=== PATIENT | female | born 1990 | race African-American/Black ===

== ENCOUNTER 2018-01-18 10:54 | Emergency (ER) | payer OTHER ==
[~2018-01-18] VITALS: Ht 170.2 cm; Wt 113.0 kg
[2018-01-18 11:06] VITALS: BP 168/99; PULSE 85; RESP 16; TEMP 97.8; O2SAT 96
[2018-01-18 11:13] VITALS: TEMP 97.9
[2018-01-18] MEDS ORDERED: levETIRAcetam 500 MG TAB PO ONE (11:30)
[2018-01-18] MEDS ORDERED: SODIUM CHLORIDE 0.9% FLUSH 10 ML FLUSH IVF PRN (11:30)
[2018-01-18] MEDS ORDERED: LORazepam 1 MG TAB PO ONE (11:30)
--- NOTE | 2018-01-18 11:30 | PD ---
HPI Chief Complaint: Seizure Time Seen by Provider: 11:19 Travel History International Travel<30 days: No Contact w/Intl Traveler<30days: No Traveled to known affect area: No History of Present Illness HPI 27-year-old female presents to the emergency department via EMS for evaluation after she had a seizure just prior to arrival. Patient's significant other is at bedside and states that he witnessed the seizure. The patient was sleeping when she had a seizure. She had no head injury. The patient reports history of seizures. She states her first seizure was in September 2017 and she has had 4 seizures since. She states that she normally takes Keppra 500 mg daily, but ran out yesterday. She states her physician wanted her to wait until Sunday before her physician gave her a refill. Patient denies . Exacerbating factor is running out of medication. Alleviating factor is compliance with medication. Moderate severe. PFSH Past Medical History ?: Unknown Social History Alcohol Use: Yes (occasionally) Tobacco Use: Yes (half pack per day) Substance Use: Yes (marijuana) Allergies-Medications (Allergen,Severity, Reaction): Coded Allergies: amoxicillin (Verified Allergy, Unknown, 01/18/18) Review of Systems Except as stated in HPI: all other systems reviewed are Neg Physical Exam Narrative GENERAL: Well-nourished, well-developed female patient, afebrile. SKIN: Focused skin assessment warm/dry. HEAD: Normocephalic. Atraumatic. ENT: Mucosa pink and moist. No erythema or exudates. No uvular edema. No uvular , palatal, or tonsillar deviation. Airway patent. Nasal turbinates appear normal without nasal blood, purulent drainage or septal hematoma. Bilateral tympanic membranes are clear without erythema or perforation. EYES: No scleral icterus. No injection or drainage. NECK: Supple, trachea midline. No JVD or lymphadenopathy. CARDIOVASCULAR: Regular rate and rhythm without murmurs, gallops, or rubs. Bilateral radial and pedal pulses are 2+. RESPIRATORY: Breath sounds equal bilaterally. No accessory muscle use. Lungs sounds are clear to auscultation GASTROINTESTINAL: Abdomen soft, non-tender, nondistended. MUSCULOSKELETAL: No cyanosis, or edema. BACK: Nontender without obvious deformity. No CVA tenderness. Data Data Last Documented VS Vital Signs Date Time Temp Pulse Resp B/P (MAP) Pulse Ox O2 Delivery O2 Flow Rate FiO2 2/23/18 11:53 98 Room Air 01/18/18 11:46 01/18/18 11:13 97.9 01/18/18 11:06 85 16 Orders Orders Complete Blood Count With Diff (01/18/18 11:25) Electrocardiogram (01/18/18 ) Blood Glucose (01/18/18 11:25) Ecg Monitoring (01/18/18 11:25) Iv Access Insert/Monitor (01/18/18 11:25) Oximetry (01/18/18 11:25) Comprehensive Metabolic Panel (01/18/18 11:25) Sodium Chloride 0.9% Flush (Ns Flush) (01/18/18 11:30) Urinalysis - C+S If Indicated (01/18/18 11:25) Ed Urine Pregnancytest Poc (01/18/18 11:25) Magnesium (Mg) (01/18/18 11:25) Lorazepam (Ativan) (01/18/18 11:30) Levetiracetam (Keppra) (01/18/18 11:30) Labs Laboratory Tests Test 01/18/18 11:30 01/18/18 13:02 White Blood Count 9.0 TH/MM3 Red Blood Count 5.13 MIL/MM3 Hemoglobin 14.1 GM/DL Hematocrit 42.1 % Mean Corpuscular Volume 82.1 FL Mean Corpuscular Hemoglobin 27.4 PG Mean Corpuscular Hemoglobin Concent 33.4 % Red Cell Distribution Width 14.8 % Platelet Count 346 TH/MM3 Mean Platelet Volume 8.4 FL Neutrophils (%) (Auto) 49.3 % Lymphocytes (%) (Auto) 37.8 % Monocytes (%) (Auto) 7.1 % Eosinophils (%) (Auto) 4.9 % Basophils (%) (Auto) 0.9 % Neutrophils # (Auto) 4.5 TH/MM3 Lymphocytes # (Auto) 3.4 TH/MM3 Monocytes # (Auto) 0.6 TH/MM3 Eosinophils # (Auto) 0.4 TH/MM3 Basophils # (Auto) 0.1 TH/MM3 CBC Comment DIFF FINAL Differential Comment Blood Urea Nitrogen 15 MG/DL Creatinine 1.07 MG/DL Random Glucose 91 MG/DL Total Protein 7.5 GM/DL Albumin 3.3 GM/DL Calcium Level 8.5 MG/DL Magnesium Level 1.7 MG/DL Alkaline Phosphatase 94 U/L Aspartate Amino Transf (AST/SGOT) 18 U/L Alanine Aminotransferase (ALT/SGPT) 25 U/L Total Bilirubin 0.3 MG/DL Sodium Level 138 MEQ/L Potassium Level 4.2 MEQ/L Chloride Level 109 MEQ/L Carbon Dioxide Level 22.2 MEQ/L Anion Gap 7 MEQ/L Estimat Glomerular Filtration Rate 75 ML/MIN Urine Color LIGHT-YELLOW Urine Turbidity CLEAR Urine pH 6.0 Urine Specific [place] 1.019 Urine Protein 100 mg/dL Urine Glucose (UA) NEG mg/dL Urine Ketones TRACE mg/dL Urine Occult Blood NEG Urine Nitrite NEG Urine Bilirubin NEG Urine Urobilinogen LESS THAN 2.0 MG/DL Urine Leukocyte Esterase NEG Urine WBC 1 /hpf Urine Squamous Epithelial Cells 1 /hpf Urine Mucus FEW /lpf Microscopic Urinalysis Comment CULT NOT INDICATED MDM Medical Decision Making Medical Screen Exam Complete: Yes Emergency Medical Condition: Yes Medical Record Reviewed: Yes Differential Diagnosis Recurrent seizure versus medication noncompliance versus electrolyte abnormality Narrative Course 27-year-old female presents to the emergency department via EMS after having a witnessed seizure at home. Patient has history of seizures and ran out of her medication yesterday. She appears well on exam. IV access established. EKG, CBC, CMP, magnesium, UA, urine test are ordered and pending. Patient is given Ativan 1 mg by mouth, Keppra 500 mg by mouth. EKG shows sinus rhythm, heart rate 75, no acute ST changes. CBC shows no acute abnormality. CMP shows no acute abnormality. Magnesium is 1.7. UA is negative for acute infection. UPT is negative. Upon reassessment, patient states she feels back to her normal self and would like to go home. She is adamant that she only takes Keppra 500 mg daily. She would like a prescription for this. This will be provided. She is to follow with her physician on Sunday as scheduled. She is return here for any acute worsening of symptoms. The patient was discharged in stable condition with instructions, including return instructions and follow up instructions. Diagnosis Primary Impression: Recurrent seizures Referrals: Primary Care Physician 3 days Patient Instructions: General Instructions, Recurrent Seizures in Adults (ED) Additional Instructions: Take Keppra as prescribed. Follow-up with your primary care physician on Sunday as scheduled. Return to the emergency department for any acute worsening of symptoms. Med/Other Pt SpecificInfo: Prescription(s) given Scripts Levetiracetam (Keppra) 500 Mg Tab 500 MG PO DAILY for Control Seizures, #30 TAB 0 Refills Prov: Ines Jin 01/18/18 Disposition: 01 DISCHARGE HOME Condition: Stable Ines Jin Jan 18, 2018 11:30
[2018-01-18 11:46] VITALS: O2SAT 100
[2018-01-18 12:04] LABS: AUTOMATED NEUTROPHIL # 4.5 TH/MM3 (1.8-7.7); BASOPHIL # 0.1 TH/MM3 (0-0.2); BASOPHIL % 0.9 % (0.0-2.0); EOSINOPHIL # 0.4 TH/MM3 (0-0.4); EOSINOPHIL % 4.9 % (0.0-4.0); HEMATOCRIT 42.1 % (35.0-46.0); HEMOGLOBIN 14.1 GM/DL (11.6-15.3); LYMPH % 37.8 % (9.0-44.0); LYMPHOCYTE # 3.4 TH/MM3 (1.0-4.8); MEAN CELL VOLUME 82.1 FL (80.0-100.0); MEAN CORPUSCULAR HEMOGLOBIN 27.4 PG (27.0-34.0); MEAN CORPUSCULAR HGB CONC 33.4 % (32.0-36.0); MEAN PLATELET VOLUME 8.4 FL (7.0-11.0); MONO % 7.1 % (0.0-8.0); MONOCYTE # 0.6 TH/MM3 (0-0.9); NEUT % 49.3 % (16.0-70.0); PLATELET COUNT 346 TH/MM3 (150-450); RED BLOOD COUNT 5.13 MIL/MM3 (4.00-5.30); RED CELL DISTRIBUTION WIDTH 14.8 % (11.6-17.2)
[2018-01-18 12:23] LABS: ALBUMIN 3.3 GM/DL (3.4-5.0); AST (GOT) 18 U/L (15-37); BICARBONATE 22.2 MEQ/L (21.0-32.0); BLOOD UREA NITROGEN 15 MG/DL (7-18); CALCIUM 8.5 MG/DL (8.5-10.1); CHLORIDE 109 MEQ/L (98-107); CREATININE 1.07 MG/DL (0.50-1.00); GLOMERULAR FILTRATION RATE 75 ML/MIN (>89); GLUCOSE,RANDOM 91 MG/DL (74-106); MAGNESIUM 1.7 MG/DL (1.5-2.5); SODIUM (NA) 138 MEQ/L (136-145)
[2018-01-18 12:24] LABS: ALT (GPT) 25 U/L (10-53)
[2018-01-18 12:26] LABS: ALKALINE PHOSPHATASE 94 U/L (45-117); TOTAL BILIRUBIN ADULT 0.3 MG/DL (0.2-1.0); TOTAL PROTEIN 7.5 GM/DL (6.4-8.2)
[2018-01-18 13:20] LABS: BILIRUBIN, URINE NEG (NEG); BLOOD, URINE NEG (NEG); GLUCOSE,URINE NEG (NEG); KETONE, URINE TRACE mg/dL (NEG); MUCUS URINE FEW /lpf (OCC); NITRITE,URINE NEG (NEG); SQUAMOUS EPITHELIAL CELL URINE 1 /hpf (0-5); URINE COLOR LIGHT-YELLOW (YELLW/STRAW); URINE LEUKOCYTE ESTERASE NEG (NEG)
[2018-01-18] MEDS ORDERED: LEVE500 PO (13:30)
--- NOTE | 2018-01-18 16:34 | EKG ---
Date Performed: 01/18/2018 Time Performed: 11:52:34 PTAGE: 27 years EKG: Sinus rhythm NORMAL ECG NO PREVIOUS TRACING DOCTOR: Travis Waters Interpretating Date/Time 01/18/2018 16:31:30
== END 2018-01-18 13:48 | disposition home or self-care (01) ==
LOC: NEPC 10:54
DX: R56.9 Unspecified convulsions (principal); F17.200 Nicotine dependence, unspecified, uncomplicated; Z88.0 Allergy status to penicillin
CPT/HCPCS: 80053; 81001; 83735; 84703; 85025; 93005; 99284